=== PATIENT | female | born 1990 | race Caucasian/White ===

== ENCOUNTER 2020-04-20 02:32 | Emergency (ER) | payer BC ==
[2020-04-20] MEDS ORDERED: Ondansetron 4 MG Tab.DIS PO ONE (02:33)
[2020-04-20] MEDS ORDERED: Ketorolac 10 MG Tab PO ONE (02:33)
[2020-04-20 03:10] LABS: CHLORIDE,CL 104 mEq/L (98-106); SODIUM,NA 143 mEq/L (136-145)
[2020-04-20] MEDS: Ondansetron 8 MG in Sodium Chloride 0.9% 50 ML IV PRN (03:28)
[2020-04-20] MEDS: Ketorolac 30 MG/ML SDV IVPUSH ONE (03:30)
--- NOTE | 2020-04-20 03:54 | EDM.PDOC ---
ED HPI GENERAL MEDICAL PROBLEM - General Chief Complaint: Gastrointestinal Problem Stated Complaint: N/V/D Time Seen by Provider: 04/20/20 03:05 Source of Information: Reports: Patient History Limitations: Reports: No Limitations - History of Present Illness INITIAL COMMENTS - FREE TEXT/NARRATIVE: states that about 2230 last evening she developed a headache and then she started to vomit at 2300 and had some diarrhea to go with it. The headache has progressively become worse and so did the nausea and vomiting. No fever or chills with it. She has had a history of headaches and migraines and has been able to deal with them at home prior. She feels that this one has been the worse. Pain is in the forehead and causes an increase in pressure. She denies any photophobia or sensitivity to sounds. She felt the headache was getting worse and if she laid down it was worse. Onset: Today Location: Reports: Head, Abdomen Associated Symptoms: Reports: Nausea/Vomiting, Other (diarrhea) Headache Pain Score (Numeric/FACES): 7 - Related Data Allergies Allergy/AdvReac Type Severity Reaction Status Date / Time No Known Allergies Allergy Verified 04/20/20 02:33 Home Meds: Home Meds Citalopram Hydrobromide [Celexa] 40 mg PO DAILY 04/20/20 [History] norgestimate-ethinyl estradioL [[place]-Linyah 28 Tablet] 1 tab PO DAILY 04/20/20 [History] Past Medical History HEENT History: Reports: Otitis Media Gastrointestinal History: Reports: Irritable Bowel Syndrome Musculoskeletal History: Reports: Fracture Neurological History: Reports: Migraines Psychiatric History: Reports: Anxiety - Infectious Disease History Infectious Disease History: Reports: Chicken Pox - Past Surgical History HEENT Surgical History: Reports: Oral Surgery, Tonsillectomy GI Surgical History: Reports: None Musculoskeletal Surgical History: Reports: None Social & Family History - Family History Family Medical History: Noncontributory - Tobacco Use Smoking Status *Q: Never Smoker Second Hand Smoke Exposure: No - Caffeine Use Caffeine Use: Reports: Coffee, Soda - Recreational Drug Use Recreational Drug Use: No ED ROS GENERAL - Review of Systems Review Of Systems: See Below Constitutional: Denies: Fever, Chills, Weakness HEENT: Denies: Vertigo Respiratory: Reports: No Symptoms Cardiovascular: Reports: No Symptoms GI/Abdominal: Reports: Diarrhea, Nausea, Vomiting : Reports: No Symptoms Skin: Reports: No Symptoms Neurological: Reports: Headache. Denies: Dizziness, Numbness Psychiatric: Denies: Anxiety ED EXAM, GI/ABD - Physical Exam Exam: See Below Exam Limited By: No Limitations General Appearance: Alert, WD/WN, Mild Distress Ears: Normal External Exam, Normal Canal Nose: Normal Inspection Throat/Mouth: Normal Inspection, Normal Oropharynx Head: Atraumatic, Normocephalic Neck: Normal Inspection, Supple, Non-Tender Respiratory/Chest: No Respiratory Distress, Lungs Clear, Normal Breath Sounds Cardiovascular: Regular Rate, Rhythm GI/Abdominal Exam: Normal Bowel Sounds, Soft, Non-Tender Extremities: Normal Inspection, Normal Capillary Refill Neurological: Alert, Oriented Skin Exam: Warm, Dry, Intact Course - Vital Signs Last Recorded V/S: Last Vital Signs Temp 97.5 F 04/20/20 02:36 Pulse 65 04/20/20 02:36 Resp 16 04/20/20 02:36 BP 102/67 04/20/20 02:36 Pulse Ox 100 04/20/20 02:36 - Orders/Labs/Meds Orders: Active Orders 24 hr Category Date Time Status Ondansetron [Zofran] 8 mg Med 04/20/20 03:09 Active Sodium Chloride 0.9% [Normal Saline] 50 ml IV NOW Medication Orders Ondansetron HCl 8 mg/ Sodium (Chloride) 54 mls @ 100 mls/hr IV NOW PRN PRN Reason: Vomiting Last Admin: 04/20/20 03:28 Dose: 100 mls/hr Documented by: KENDRA Labs: Laboratory Tests 04/20/20 04/20/20 04/20/20 Range/Units 02:44 02:44 02:44 WBC 12.2 H (5.0-10.0) 10^3/uL RBC 4.11 (4.00-5.50) 10^6/uL Hgb 12.6 (12.0-16.0) g/dL Hct 36.9 L (37.0-47.0) % MCV 89.8 (82.0-94.0) fL MCH 30.7 (27.0-32.0) pg MCHC 34.1 (33.0-38.0) g/dL RDW Coeff of Connie 12.9 (11.0-15.0) % Plt Count 345 (150-400) 10^3/uL Neut % (Auto) 64.5 (35-85) % Lymph % (Auto) 29.2 (10-55) % [place] % (Auto) 5.4 (0-16) % Eos % (Auto) 0.7 (0-5) % Baso % (Auto) 0.2 (0-3) % Neut # (Auto) 7.82 H (1.80-7.00) 10^3/uL Lymph # (Auto) 3.55 (1.00-4.80) 10^3/uL [place] # (Auto) 0.66 (0.00-0.80) 10^3/uL Eos # (Auto) 0.09 (0.00-0.45) 10^3/uL Baso # (Auto) 0.03 10^3/uL Sodium 143 (136-145) mEq/L Potassium 3.3 L (3.5-5.0) mEq/L Chloride 104 (98-106) mEq/L Carbon Dioxide 24 (21-32) mmol/L BUN 12 (7-18) mg/dL Creatinine 0.9 (0.6-1.0) mg/dL Est Cr Clr Drug Dosing 78.93 mL/min Estimated GFR (MDRD) > 60 (>=60) mL/min Glucose 112 H (75-99) mg/dL Calcium 8.8 (8.4-10.1) mg/dL Total Bilirubin 0.3 (0.0-1.0) mg/dL AST 16 (15-37) U/L ALT 17 (12-78) U/L Alkaline Phosphatase 66 (46-116) U/L C-Reactive Protein 2.6 H (0.2-0.8) mg/dL Total Protein 7.3 (6.4-8.2) g/dL Albumin 3.5 (3.4-5.0) g/dL Urine Color Yellow (YELLOW) Urine Appearance Clear (CLEAR) Urine pH 6.5 (4.5-8.0) Ur Specific [place] 1.025 H (1.003-1.020) Urine Protein Negative (NEGATIVE) mg/dL Urine Glucose (UA) Negative (NEGATIVE) mg/dL Urine Ketones Negative (NEGATIVE) mg/dL Urine Occult Blood Negative (NEGATIVE) Urine Nitrite Negative (NEGATIVE) Urine Bilirubin Negative (NEGATIVE) Urine Urobilinogen 0.2 (0.2-1.0) EU/dL Ur Leukocyte Esterase Trace H (NEGATIVE) Urine RBC Not seen (0-5) /HPF Urine WBC Not seen (0-5) /HPF Urinalysis Comment Meds: Medications Generic Name Dose Route Start Last Admin Trade Name Freq PRN Reason Stop Dose Admin Ondansetron HCl 8 mg/ Sodium 54 mls @ 100 mls/hr 04/20/20 03:09 04/20/20 03:28 Chloride IV 100 mls/hr NOW PRN Administration Vomiting Discontinued Medications Generic Name Dose Route Start Last Admin Trade Name Freq PRN Reason Stop Dose Admin Ketorolac Tromethamine 30 mg 04/20/20 03:09 04/20/20 03:30 Toradol IVPUSH 04/20/20 03:10 30 mg ONETIME ONE Administration - Re-Assessments/Exams Free Text/Narrative Re-Assessment/Exam: 04/20/20 03:57 states that the headache is getting better and she feels that she can lay down now without getting nauseated and vomit. Has not had any vomiting or diarrhea since being here. She states that she feels like she could lay down and sleep now. Departure - Departure Time of Disposition: 04:03 Disposition: Home, Self-Care 01 Condition: Good Clinical Impression: Migraine Qualifiers: Migraine type: without aura Status migrainosus presence: without status migrainosus Intractability: intractable Qualified Code(s): G43.019 - Migraine without aura, intractable, without status migrainosus - Discharge Information *PRESCRIPTION DRUG MONITORING PROGRAM REVIEWED*: Not Applicable *COPY OF PRESCRIPTION DRUG MONITORING REPORT IN PATIENT KARTIK: Not Applicable Instructions: Migraine Headache, [id number] Referrals: Gosia Alexander PA-C [Primary Care Provider] - Additional Instructions: Ketoralac as needed for headache every 8 hours ondansetron tae 1 every 8 hours as needed for the nausea push fluids as much as possible recheck in the clinic if not improving. Sepsis Event Note (ED) - Evaluation Sepsis Screening Result: No Definite Risk - Focused Exam Vital Signs: Vital Signs Temp Pulse Resp BP Pulse Ox 04/20/20 02:36 97.5 F 65 16 102/67 100 - Problem List & Annotations (1) Migraine SNOMED Code(s): 70978202 Code(s): G43.909 - MIGRAINE, UNSP, NOT INTRACTABLE, WITHOUT STATUS MIGRAINOSUS Status: Acute Priority: High Current Visit: Yes Qualifiers: Migraine type: without aura Status migrainosus presence: without status migrainosus Intractability: intractable Qualified Code(s): G43.019 - Migraine without aura, intractable, without status migrainosus - Problem List Review Problem List Initiated/Reviewed/Updated: Yes - My Orders Last 24 Hours: My Active Orders 04/20/20 03:09 Ondansetron [Zofran] 8 mg Sodium Chloride 0.9% [Normal Saline] 50 ml IV NOW - Assessment/Plan Last 24 Hours: My Active Orders 04/20/20 03:09 Ondansetron [Zofran] 8 mg Sodium Chloride 0.9% [Normal Saline] 50 ml IV NOW
[2020-04-20] MEDS: Take Home: Ketorolac 10 MG Tab, 4 Tab Pack PO ONE (04:14)
[2020-04-20] MEDS: Take Home: Ondansetron 4 MG Tab.DIS, 2 Tab Pack PO ONE (04:14)
== END 2020-04-20 04:12 | disposition home or self-care (01) ==
LOC: CC.ED 02:32
DX: G43.019 Migraine without aura, intractable, without status migrainosus (principal); F41.9 Anxiety disorder, unspecified; Z79.899 Other long term (current) drug therapy
CPT/HCPCS: 36415; 80053; 81001; 85025; 86140; 96365; 96375; 99284-25; A9270-GY; J1885; J2405; J7050

== ENCOUNTER 2020-05-18 21:15 | Emergency (ER) | payer BC ==
[2020-05-18] MEDS ORDERED: Promethazine 25 MG Tab PO STA (21:28)
--- NOTE | 2020-05-18 21:57 | EDM.PDOC ---
ED HPI GENERAL MEDICAL PROBLEM - General Chief Complaint: ENT Problem Stated Complaint: left side throat "swollen" sore, vomiting Time Seen by Provider: 05/18/20 21:20 Source of Information: Reports: Patient History Limitations: Reports: No Limitations - History of Present Illness INITIAL COMMENTS - FREE TEXT/NARRATIVE: This patient is a 29 year old female that presents to the ER. Patient reports that for 2 days she has had sore throat, congestion, drainage. She reports hurts to eat and drink on the left side of throat. Patient also reports history of migraine and had a mild one today, and has vomited x4 this morning. She reports her period began Thursday and she is normally regular. Onset Date: 05/16/20 Duration: Day(s): (2) Location: Reports: Other (throat) Quality: Reports: Ache Severity: Mild Improves with: Reports: None Worsens with: Reports: None Associated Symptoms: Reports: Headaches, Nausea/Vomiting. Denies: Confusion, Chest Pain, Cough, cough w sputum, Diaphoresis, Fever/Chills, Loss of Appetite, Malaise, Rash, Seizure, Shortness of Breath, Syncope, Weakness - Related Data Allergies Allergy/AdvReac Type Severity Reaction Status Date / Time No Known Allergies Allergy Verified 05/18/20 21:21 Home Meds: Home Meds Citalopram Hydrobromide [Celexa] 40 mg PO DAILY 04/20/20 [History] norgestimate-ethinyl estradioL [[place]-Linyah 28 Tablet] 1 tab PO DAILY 04/20/20 [History] Amoxicillin 500 mg PO TID 10 Days #30 capsule 05/18/20 [Rx] Promethazine [Phenergan] 25 mg PO Q6H PRN #8 tab 05/18/20 [Rx] Past Medical History HEENT History: Reports: Otitis Media Gastrointestinal History: Reports: Irritable Bowel Syndrome Musculoskeletal History: Reports: Fracture Neurological History: Reports: Migraines Psychiatric History: Reports: Anxiety - Infectious Disease History Infectious Disease History: Reports: Chicken Pox - Past Surgical History HEENT Surgical History: Reports: Oral Surgery, Tonsillectomy GI Surgical History: Reports: None Musculoskeletal Surgical History: Reports: None Social & Family History - Family History Family Medical History: Noncontributory - Caffeine Use Caffeine Use: Reports: Coffee, Soda ED ROS ENT - Review of Systems Review Of Systems: See Below Constitutional: Reports: No Symptoms HEENT: Reports: Rhinitis, Sinus Problem, Throat Pain Respiratory: Reports: No Symptoms. Denies: Shortness of Breath, Wheezing, Cough, Sputum Cardiovascular: Reports: No Symptoms Endocrine: Reports: No Symptoms GI/Abdominal: Reports: Nausea, Vomiting. Denies: Abdominal Pain, Diarrhea : Reports: No Symptoms. Denies: Discharge, Dysuria, Flank Pain, Frequency, Hematuria, Incontinence, Irregular Menses, Pain, Urgency, Urinary Retention Musculoskeletal: Reports: No Symptoms Skin: Reports: No Symptoms Neurological: Reports: Headache. Denies: Confusion, Dizziness, Numbness, Pre- Existing Deficit, Seizure, Syncope, Tingling, Tremors, Trouble Speaking, Difficulty Walking, Weakness, Change in Speech, Gait Disturbance Psychiatric: Reports: No Symptoms Hematologic/Lymphatic: Reports: No Symptoms Immunologic: Reports: No Symptoms ED EXAM, ENT - Physical Exam Exam: See Below Exam Limited By: No Limitations General Appearance: Alert, WD/WN, No Apparent Distress Eye Exam: Bilateral Eye: Normal Inspection, PERRL Ears: Normal External Exam, Normal Canal, Hearing Grossly Normal, Normal TMs Nose: Normal Inspection, Normal Mucousa, No Blood Mouth/Throat: Normal Gums, Normal Lips, Normal Teeth, Pharyngeal Erythema, Throat Pain. No: Dry Mucous Membrane, Hoarse Voice, Oral Ulcers, Peritonsillar Mass, Throat Swelling, Tongue Swelling, Tonsillar Exudates, Tonsillar Swelling, Trismus, Uvular Deviation, Uvular Edema Head: Atraumatic, Normocephalic Neck: Normal Inspection, Supple, Non-Tender, Full Range of Motion. No: Limited Range of Motion, Lymphadenopathy (L), Lymphadenopathy (R), Tender Lateral, Tender Midline Respiratory/Chest: No Respiratory Distress, Lungs Clear, Normal Breath Sounds, No Accessory Muscle Use Cardiovascular: Normal Peripheral Pulses, Regular Rate, Rhythm, No Edema, No Gallop, No JVD, No Murmur, No Rub GI/Abdominal: Normal Bowel Sounds, Soft, Non-Tender, No Organomegaly, No Distention Back: Normal Inspection, Full Range of Motion. No: CVA Tenderness (L), CVA Tenderness (R) Extremities: Normal Inspection, Normal Range of Motion, Non-Tender, No Pedal Edema, Normal Capillary Refill Neurological: Alert, Oriented, Normal Cognition, Normal Gait, No Motor/Sensory Deficits Psychiatric: Normal Affect, Normal Mood Skin: Warm, Dry, Intact, Normal Color, No Rash Lymphatic: No Adenopathy Course - Orders/Labs/Meds Labs: Laboratory Tests 05/18/20 Range/Units 21:40 COVID-19 ([place]) Negative (NEGATIVE) Meds: Medications Discontinued Medications Generic Name Dose Route Start Last Admin Trade Name Freq PRN Reason Stop Dose Admin Promethazine HCl 12.5 mg 05/18/20 21:28 05/18/20 21:48 Phenergan PO 05/18/20 21:29 12.5 mg NOW STA Administration Departure - Departure Time of Disposition: 21:55 Disposition: Home, Self-Care 01 Condition: Good Clinical Impression: Viral pharyngitis - Discharge Information *PRESCRIPTION DRUG MONITORING PROGRAM REVIEWED*: Not Applicable *COPY OF PRESCRIPTION DRUG MONITORING REPORT IN PATIENT KARTIK: Not Applicable Prescriptions: Amoxicillin 500 mg PO TID 10 Days #30 capsule Promethazine [Phenergan] 25 mg PO Q6H PRN #8 tab PRN Reason: Nausea/Vomiting Instructions: Pharyngitis Referrals: PCP,None [Primary Care Provider] - Forms: ED Department Discharge Additional Instructions: Followup with your primary care provider Return to the ER for worsening of condition or any emergent concerns such as airway closing, continued vomiting, or other concerns Increase fluids Phenergan 25mg 1 pill every 6 hours as needed for nausea or vomiting #8 no refill Amoxicillin 500mg 1 pill three times a day for 10 days #30 no refill (Need to use other form of control if having sex. Makes control less effective) - Assessment/Plan Plan: PLEASE SEE RN NOTE FOR PFSH
== END 2020-05-18 22:15 | disposition home or self-care (01) ==
LOC: CC.ED 21:15
DX: J02.9 Acute pharyngitis, unspecified (principal); Z20.828 Contact with and (suspected) exposure to other viral communicable diseases; F41.9 Anxiety disorder, unspecified; Z79.899 Other long term (current) drug therapy
CPT/HCPCS: 87430; 99283; A9270-GY; U0002